=== PATIENT | female | born 1990 | race Caucasian/White ===

== ENCOUNTER → 2024-01-07 06:28 | Day surgery (SDC) | payer OTHER, SELFPAY | LOC: GI 06:28 | PROVIDERS: ATTENDING PHYSICIAN Internal Medicine Gastroenterology | DX: K21.9 Gastro-esophageal reflux disease without esophagitis (principal); K31.89 Other diseases of stomach and duodenum; R10.13 Epigastric pain | CPT/HCPCS: 43239; 88305; 88342 ==

== ENCOUNTER → 2024-01-30 09:47 | Outpatient (REF) | payer OTHER, SELFPAY | LOC: WDC 09:47 | PROVIDERS: ATTENDING PHYSICIAN Registered Nurse; FAMILY PHYSICIAN Family Medicine | DX: N63.11 Unspecified lump in the right breast, upper outer quadrant (principal) | CPT/HCPCS: 76642; 77062; 77066 ==

== ENCOUNTER → 2024-02-17 08:27 | Outpatient (REF) | payer OTHER, SELFPAY | LOC: RAD 08:27 | PROVIDERS: ATTENDING PHYSICIAN Registered Nurse; FAMILY PHYSICIAN Family Medicine | DX: N92.0 Excessive and frequent menstruation with regular cycle (principal) | CPT/HCPCS: 76830; 76856 ==

== ENCOUNTER → 2025-02-15 07:47 | Outpatient (REF) | payer OTHER, SELFPAY | LOC: PAVMRI 07:47 | PROVIDERS: ATTENDING PHYSICIAN Family Medicine | DX: R41.3 Other amnesia (principal) | CPT/HCPCS: 70551 ==